=== PATIENT | female | born 1990 | race Caucasian/White ===

== ENCOUNTER 2016-04-26 18:07 | Emergency (ER) | payer SELFPAY ==
--- NOTE | 2016-04-26 19:06 | Emergency Department Record ---
History of Present Illness - General Chief Complaint: Arrythmia/Palpitations Stated Complaint: IRREGULAR HEARTBEAT,DIZZY Time Seen by Provider: 04/26/16 18:32 Mode of Arrival: Ambulatory - History of Present Illness Initial Comments: The patient has been having palpitations off and on for about a month. She also has not felt well for at least a month and has had weakness, dizziness and fatigue. Today a few hours ago she also had some sharp L upper CP near her armpit. She denied any SOB, BROOKS, sweating, radiation of the pain to the back or nausea with the pain. Presently she denies any problems, pain or discomfort. The patient does not have any cardiac risk factors. The patient does have a hx of being tall and has been told she does NOT have Marfan's Syndrome. She also has seen a Director [employer] in the recent past and has been told her heart is WNL. She believes she did have a cardiac echo at that time. MD Complaint: Irregular heart beat, Palpitations Onset/Timin -: Month(s) Context: Occurred during rest Arrythmia History: Other Associated Symptoms: Chest pain - Related Data Home Medications Medication Instructions Recorded Confirmed Last Taken No Home Med [NO HOME MEDS] 04/26/16 04/26/16 Unknown Allergies Allergy/AdvReac Type Severity Reaction Status Date / Time Sulfa (Sulfonamide AdvReac VOMITING Verified 04/26/16 18:16 Antibiotics) Travel Screening - Travel/Exposure Within Last 30 Days Have you traveled within the last 30 days?: No - Travel/Exposure Within Last Year Have you traveled outside the [place] in the last year?: No - Additonal Travel Details Have you been exposed to anyone with a communicable illness?: No - Travel Symptoms Symptom Screening: None Past Medical History - SOCIAL HISTORY Smoking Status: Never smoker Alcohol Use: Occassional Drug Use: None - RESPIRATORY Hx Respiratory Disorders: No - CARDIOVASCULAR Hx Cardio Disorders: No Comment:: arrythmia - NEURO Hx Neuro Disorders: No - GI Hx GI Disorders: No - Hx Genitourinary Disorders: No - ENDOCRINE Hx Endocrine Disorders: No - MUSCULOSKELETAL Hx Musculoskeletal Disorders: No - PSYCH Hx Psych Problems: No - HEMATOLOGY/ONCOLOGY Hx Hematology/Oncology Disorders: No Family Medical History Any Significant Family History?: Yes Hx Heart Disease: Grandparents Physical Exam - General General Appearance: Alert, Oriented x3, Cooperative, No acute distress - Head Head exam: Atraumatic, Normocephalic, Normal inspection - Eye Eye exam: Normal appearance, PERRL - Neck Neck exam: Normal inspection, Full ROM. negative: Tenderness - Respiratory Respiratory exam: Normal lung sounds bilaterally. negative: Respiratory distress - Cardiovascular Cardiovascular Exam: Regular rate, Normal rhythm, Normal heart sounds - GI/Abdominal GI/Abdominal exam: Soft, Normal bowel sounds. negative: Tenderness - Extremities Extremities exam: Normal inspection, Full ROM, Normal capillary refill. negative: Calf tenderness, Pedal edema, Tenderness - Neurological Neurological exam: Alert, Normal gait. negative: Abnormal gait, Motor sensory deficit - Psychiatric Psychiatric exam: negative: Agitated, Anxious - Skin Skin exam: negative: Rash Course Vital Signs 04/26/16 18:19 Temperature 98.3 F Pulse Rate 77 Respiratory 18 Rate Blood Pressure 137/85 Pulse Ox 98 - Reevaluation(s) Reevaluation #1: The patient is doing very well at this time. She denies any pain or discomfort and has been asymptomatic the entire time she has been in the ED. I explained to her that her tests are all WNL. The patient is refusing her CXR but does feel well enough for home. I explained to her that I felt her symptoms are not anything dangerous due to her eval being completely normal along with the fact she has no cardiac risk factors. I also explained to her that I strongly doubted a PE due to the fact she has no pain now, no SOB or BROOKS, and is PERC neg. Due to the fact the patient is refusing her CXR I did explain to her that she will need to sign out of the ED AMA. I explained to her that we cannot be held liable for NOT doing the xray and possibly missing things that could be causing her symptoms. She was encouraged to see her PCP LOYDA and to return to the ER for any problems or new issues. 04/26/16 20:26 Medical Decision Making - Data Complexity MDM Data: Labs Ordered and/or Reviewed, EKG Ordered and/or Reviewed - Lab Data Result diagrams: 04/26/16 18:25 04/26/16 18:25 - EKG Data -: EKG Interpreted by Me EKG: No Acute Changes, Normal EKG Disposition Disposition: Discharge Clinical Impression: Atypical chest pain Disposition: Against Medical Advice Instructions: Palpitations (ED) Additional Instructions: PLease see your PCP later this week. Return to the ER for any pain, trouble breathing or shortness of breath. Forms: Patient Portal Access Time of Disposition: 20:31
[2016-04-26 19:33] LABS: BASO % 0.2 % (0-6); EOS % 1.4 % (0-6); GRAN % 65.6 % (47-80); HEMATOCRIT 40.9 % (35.0-47.0); HEMOGLOBIN 13.7 gm/dl (11.6-16.0); LYMPH % 25.5 % (16-45); MEAN CELL VOLUME 87.2 fl (81-97); MEAN CORPUSCULAR HEMOGLOBIN 29.2 pg (27-33); MEAN CORPUSCULAR HGB CONC 33.5 g/dl (32-36); MEAN PLATELET VOLUME 9.9 fl (7.4-10.4); MONO % 7.3 % (0-9); PLATELET COUNT 304 K/uL (130-400); RED BLOOD COUNT 4.69 M/uL (3.80-5.40); RED CELL DISTRIBUTION WIDTH 12.7 % (11.5-14.5); WHITE BLOOD COUNT W/O DIFF 8.4 K/uL (4.2-12.2)
[2016-04-26 19:47] LABS: ALB/GLOB RATIO 1.8 (1.1-1.8); ALBUMIN 4.4 gm/dL (3.5-5.0); ALKALINE PHOSPHATASE 68 U/L (38-126); ALT/SGPT 24 U/L (9-52); ANION GAP 9.3 (7-16); AST/SGOT 18 U/L (14-36); BLOOD UREA NITROGEN 12 mg/dL (7-17); CARBON DIOXIDE 25.7 mmol/L (22-30); CREATINE PHOSPHOKINASE 52 U/L (30-135); CREATININE 0.7 mg/dL (0.52-1.04); EST GLOMERULAR FILTRATION RATE > 60 ml/min; GLUCOSE,RANDOM 88 mg/dL (70-110); TOTAL PROTEIN 6.8 gm/dL (6.3-8.2)
[2016-04-26 20:04] LABS: CKMB 0.2 ug/L (0-6); TROPONIN I < 0.012 ng/mL (0.00-0.034)
== END 2016-04-26 20:41 | disposition left against medical advice (07) ==
LOC: ER 18:07
DX: R07.89 Other chest pain (principal); R42 Dizziness and giddiness; R53.1 Weakness
CPT/HCPCS: 80053; 82550; 82553; 84443; 84484; 84703; 85025; 93005; 93010; 99284

== ENCOUNTER 2017-01-27 08:25 | Emergency (ER) | payer BC ==
--- NOTE | 2017-01-27 08:36 | Emergency Department Record ---
History of Present Illness - General Stated Complaint: BAD HEADACHE Time Seen by Provider: 01/27/17 08:26 Source: Patient, Family Mode of Arrival: Ambulatory Limitations: No limitations - History of Present Illness Initial Comments: 26 yo female presents with a headache. She awoke with the symptoms. She does have a history of migraines. She had very frequent migraines in middle school through high school that have decreased as an adult. Her last migraine was in March. Today's headache is mostly left sided, throbs with "tension" in her shoulders and neck. She does have some associated nausea and light sensitivity. The headache has gradually increased. No fevers, chills. vomiting. She has had some URI symptoms recently that are mild. 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 She does have aura with her migraines. She has mild vision aura today. Complaint: Headache -: Hour(s) (2) Onset Description: Awoke with symptoms Location: Facial, Left, Neck, Other (shoulders) Severity: Severe Quality: Aching, Throbbing Consistency: Constant Improves With: Rest Worsens With: Light Context: Recent URI Associated Symptoms: Photophobia, Other (Nausea) Treatments Prior to Arrival: Ibuprofen - Related Data Home Medications Medication Instructions Recorded Confirmed Last Taken Ergocalciferol (Vitamin D2) 50,000 unit PO WEEKLY 01/27/17 01/27/17 01/24/17 [Vitamin D2] Allergies Allergy/AdvReac Type Severity Reaction Status Date / Time Sulfa (Sulfonamide AdvReac VOMITING Verified 01/27/17 08:37 Antibiotics) Review of Systems Constitutional: Denies: Chills, Fever, Malaise, Weakness Eyes: Reports: Photophobia. Denies: Eye discharge, Eye pain, Vision change ENT: Reports: Congestion. Denies: Ear pain, Epistaxis, Throat pain Respiratory: Denies: Cough, Dyspnea, Hemoptysis, Stridor, Wheezes Cardiovascular: Denies: Chest pain, Edema, Syncope Endocrine: Denies: Fatigue, Polydipsia, Polyuria Gastrointestinal: Reports: Nausea. Denies: Abdominal pain, Diarrhea, Vomiting Musculoskeletal: Reports: Myalgia. Denies: Arthralgia, Back pain, Gout, Joint swelling Skin: Denies: Bruising, Change in color, Rash Neurological: Reports: Headache. Denies: Abnormal gait, Confusion, Numbness, Paresthesias, Seizure, Tingling, Tremors, Vertigo, Weakness Psychiatric: Denies: Anxiety Hematological/Lymphatic: Denies: Blood Clots, Easy bleeding, Easy bruising, Swollen glands Past Medical History - SOCIAL HISTORY Smoking Status: Never smoker Drug Use: None - RESPIRATORY Hx Respiratory Disorders: No - CARDIOVASCULAR Hx Cardio Disorders: No Comment:: arrythmia - NEURO Hx Neuro Disorders: No - GI Hx GI Disorders: No - Hx Genitourinary Disorders: No - ENDOCRINE Hx Endocrine Disorders: No - MUSCULOSKELETAL Hx Musculoskeletal Disorders: No - PSYCH Hx Psych Problems: No - HEMATOLOGY/ONCOLOGY Hx Hematology/Oncology Disorders: No Family Medical History Hx Heart Disease: Grandparents Physical Exam - General General Appearance: Alert, Oriented x3, Cooperative, No acute distress Limitations: No limitations - Head Head exam: Atraumatic, Normocephalic, Normal inspection Head exam detail: negative: Abrasion, Contusion, Fairchild's sign, General tenderness - Eye Eye exam: Normal appearance, PERRL, EOMI. negative: Conjunctival injection, Nystagmus, Periorbital swelling, Scleral icterus - ENT ENT exam: Normal exam, Mucous membranes moist, Normal orophraynx Ear exam: Normal external inspection Nasal Exam: Normal inspection Mouth exam: Normal external inspection Teeth exam: Normal inspection Throat exam: Normal inspection. negative: Tonsillar erythema, Tonsillar exudate - Neck Neck exam: Normal inspection, Full ROM, Other (Very supple full ROM). negative : Lymphadenopathy, Meningismus, Tenderness - Respiratory Respiratory exam: Normal lung sounds bilaterally. negative: Respiratory distress - Cardiovascular Cardiovascular Exam: Regular rate, Normal rhythm, Normal heart sounds Peripheral Pulses: 2+: Radial (R), Radial (L) - GI/Abdominal GI/Abdominal exam: Soft. negative: Tenderness - Rectal Rectal exam: Deferred - exam: Deferred - Extremities Extremities exam: Normal inspection - Back Back exam: Reports: Normal inspection, Full ROM. Denies: CVA tenderness (R), CVA tenderness (L) - Neurological Neurological exam: Alert, CN II-XII intact, Normal gait, Oriented X3, Reflexes normal. negative: Abnormal gait, Altered, Motor sensory deficit - Psychiatric Psychiatric exam: Normal affect, Normal mood. negative: Agitated, Anxious - Skin Skin exam: Dry, Intact, Normal color, Warm Course - Reevaluation(s) Reevaluation #1: The patient is well appearing with normal neurologic examination as tested She has a history of migraines in the past No acute indication for HCT, no trauma or fevers. The CBC, UA, and UCG are negative 01/27/17 09:12 No acute changes on the CMP The patient's symptoms are improving at this time with well controlled nausea She is asking for crackers. 01/27/17 09:22 The patient continues to feel much better. Awaiting remaing IVF then will reassess. 01/27/17 09:50 01/27/17 10:38 The patient is doing very well. She has been up to the restroom doing well on her feet. She has some tight muscles in the back otherwise she is ready for DC. We discussed reasons to return and close follow up. Medical Decision Making - Lab Data Result diagrams: 01/27/17 08:53 01/27/17 08:53 Disposition Disposition: Discharge Clinical Impression: Headache Qualifiers: Headache type: unspecified Headache chronicity pattern: acute headache Intractability: not intractable Qualified Code(s): R51 - Headache Disposition: Home, Self-Care Condition: (1) Good Instructions: Migraine Headache (ED), Acute Headache (ED) Additional Instructions: Rest and stay well hydrated Return if worse, fever, vomiting or any new concerns Call your doctor for close follow up of this ER visit Forms: Patient Portal Access Time of Disposition: 10:39 Quality - Quality Measures Quality Measures: N/A - Blood Pressure Screening Does Patient Have Any of the Following: No Blood Pressure Classification: Pre-Hypertensive BP Reading Systolic Measurement: 131 Diastolic Measurement: 83 Screening for High Blood Pressure: < Pre-Hypertensive BP, F/U Documented > [ G8950] Pre-Hypertensive Follow-up Interventions: Referral to alternative/primary care provider.
[2017-01-27] MEDS ORDERED: DIPHENHYDRAMINE HCL IV 50 MG/ML VIAL IVP ONE (08:37)
[2017-01-27] MEDS ORDERED: 0.9 % SODIUM CHLORIDE 1,000 ML BAG IV ONE (08:37)
[2017-01-27] MEDS ORDERED: KETOROLAC 30 MG/ML VIAL IVP ONE (08:37)
[2017-01-27] MEDS ORDERED: METOCLOPRAMIDE HCL 10 MG/2 ML VIAL IVP ONE (08:37)
[2017-01-27 09:02] LABS: BASO % 0.1 % (0-6); GRAN % 71.6 % (47-80); HEMATOCRIT 41.1 % (35.0-47.0); HEMOGLOBIN 13.8 gm/dl (11.6-16.0); LYMPH % 17.4 % (16-45); MEAN CELL VOLUME 85.4 fl (81-97); MEAN CORPUSCULAR HEMOGLOBIN 28.7 pg (27-33); MEAN CORPUSCULAR HGB CONC 33.6 g/dl (32-36); MEAN PLATELET VOLUME 9.8 fl (7.4-10.4); MONO % 8.9 % (0-9); PLATELET COUNT 304 K/uL (130-400); RED BLOOD COUNT 4.81 M/uL (3.80-5.40); RED CELL DISTRIBUTION WIDTH 12.6 % (11.5-14.5); URINE APPEARANCE CLEAR; URINE BILIRUBIN NEGATIVE (NEGATIVE); URINE BLOOD NEGATIVE (NEGATIVE); URINE COLOR YELLOW; URINE GLUCOSE (UA) NEGATIVE (NEGATIVE); URINE KETONE NEGATIVE (NEGATIVE); URINE LEUKOCYTE ESTERASE NEGATIVE (NEGATIVE); URINE NITRITE NEGATIVE (NEGATIVE); URINE PROTEIN NEGATIVE (NEGATIVE); URINE UROBILINOGEN 0.2 E.U./dL (0.20 - 1.00); WHITE BLOOD COUNT W/O DIFF 6.8 K/uL (4.2-12.2)
[2017-01-27 09:10] LABS: HCG,QUALITATIVE URINE NEGATIVE (NEGATIVE)
[2017-01-27 09:21] LABS: ALB/GLOB RATIO 1.7 (1.1-1.8); ALBUMIN 4.2 g/dL (4.0-5.0); ALKALINE PHOSPHATASE 66 U/L (35-104); ALT/SGPT 9 U/L (<33); AST/SGOT 13 U/L (10.0-35.0); BLOOD UREA NITROGEN 10 mg/dL (6-20); CREATININE 0.6 mg/dL (0.5-0.9); EST GLOMERULAR FILTRATION RATE > 60 mL/min; GLUCOSE,RANDOM 91 mg/dL (74-109); TOTAL PROTEIN 6.7 g/dL (6.6-8.7)
== END 2017-01-27 10:50 | disposition home or self-care (01) ==
LOC: ER 08:25
DX: R51 Headache (principal); R11.0 Nausea; H53.149 Visual discomfort, unspecified
CPT/HCPCS: 99284 ×2; 96374; 96375; 96361; 85025; 80053; 81003; 81025; J1885; J1200; J2765; J7030

== ENCOUNTER 2017-11-13 10:09 | Emergency (ER) | payer BC ==
--- NOTE | 2017-11-13 10:31 | Emergency Department Record ---
History of Present Illness - General Chief Complaint: Palpitations Stated Complaint: PALPATATIONS Time Seen by Provider: 11/13/17 10:27 Source: Patient, RN notes reviewed Mode of Arrival: Ambulatory - History of Present Illness Initial Comments: patient having palpitations more than usually. Patient under stress with jobs and boyfriend and she had caffeine today. Patient drinks 2 iced coffee per day Large. patient was reluctant to start any meds she was sent over by Dr. Wasserman' s office to hopefully get an echo and a cardiology appointment Complaint: Palpitations Onset/Timin -: Week(s) Arrythmia History: Other Associated Symptoms: Cough, Near-syncope - Related Data Allergies Allergy/AdvReac Type Severity Reaction Status Date / Time Sulfa (Sulfonamide AdvReac VOMITING Verified 11/13/17 10:21 Antibiotics) Travel Screening - Travel/Exposure Within Last 30 Days Have you traveled within the last 30 days?: No Review of Systems Reviewed: No additional complaints except as noted below Constitutional: Reports: As per HPI. Denies: Chills, Fever, Malaise, Night sweats, Weakness, Weight change Eyes: Reports: As per HPI. Denies: Eye discharge, Eye pain, Photophobia, Vision change ENT: Reports: As per HPI. Denies: Congestion, Dental pain, Ear pain, Epistaxis , Hearing loss, Throat pain Respiratory: Reports: As per HPI. Denies: Cough, Dyspnea, Hemoptysis, Stridor, Wheezes Cardiovascular: Reports: As per HPI, Palpitations. Denies: Arrhythmia, Chest pain, Dyspnea on exertion, Edema, Murmurs, Orthopnea, Paroxysmal nocturnal dyspnea, Rheumatic Fever, Syncope Endocrine: Reports: As per HPI. Denies: Fatigue, Heat or cold intolerance, Polydipsia, Polyuria Gastrointestinal: Reports: As per HPI. Denies: Abdominal pain, Constipation, Diarrhea, Hematemesis, Hematochezia, Melena, Nausea, Vomiting Genitourinary: Reports: As per HPI. Denies: Abnormal menses, Discharge, Dyspareunia, Dysuria, Frequency, Hematuria, Incontinence, Retention, Urgency Musculoskeletal: Reports: As per HPI. Denies: Arthralgia, Back pain, Gout, Joint swelling, Myalgia, Neck pain Skin: Reports: As per HPI. Denies: Bruising, Change in color, Change in hair/ nails, Lesions, Pruritus, Rash Neurological: Reports: As per HPI. Denies: Abnormal gait, Confusion, Headache, Numbness, Paresthesias, Seizure, Tingling, Tremors, Vertigo, Weakness Psychiatric: Reports: As per HPI. Denies: Anxiety, Auditory hallucinations, Depression, Homicidal thoughts, Suicidal thoughts, Visual hallucinations Hematological/Lymphatic: Reports: As per HPI. Denies: Anemia, Blood Clots, Easy bleeding, Easy bruising, Swollen glands Past Medical History - SOCIAL HISTORY Smoking Status: Never smoker Drug Use: None - RESPIRATORY Hx Respiratory Disorders: No - CARDIOVASCULAR Hx Cardio Disorders: No Comment:: arrythmia - NEURO Hx Neuro Disorders: No - GI Hx GI Disorders: No - Hx Genitourinary Disorders: No - ENDOCRINE Hx Endocrine Disorders: No - MUSCULOSKELETAL Hx Musculoskeletal Disorders: No - PSYCH Hx Psych Problems: No - HEMATOLOGY/ONCOLOGY Hx Hematology/Oncology Disorders: No Family Medical History Hx Heart Disease: Grandparents Physical Exam - General General Appearance: Alert, Oriented x3, Cooperative, No acute distress - Head Head exam: Normal inspection - Eye Eye exam: Normal appearance, PERRL Pupils: Normal accommodation - ENT ENT exam: Normal exam, Mucous membranes moist, Normal external ear exam, Normal orophraynx, TM's normal bilaterally Ear exam: Normal external inspection. negative: External canal tenderness Nasal Exam: Normal inspection. negative: Discharge, Sinus tenderness Mouth exam: Normal external inspection, Tongue normal Teeth exam: Normal inspection. negative: Dental caries Throat exam: Normal inspection. negative: Tonsillar erythema, Tonsillar exudate - Neck Neck exam: Normal inspection, Full ROM. negative: Tenderness - Respiratory Respiratory exam: Normal lung sounds bilaterally. negative: Respiratory distress - Cardiovascular Cardiovascular Exam: Regular rate, Normal rhythm, Normal heart sounds - GI/Abdominal GI/Abdominal exam: Soft, Normal bowel sounds. negative: Tenderness - Rectal Rectal exam: Deferred - exam: Deferred - Extremities Extremities exam: Normal inspection, Full ROM, Normal capillary refill. negative: Tenderness - Back Back exam: Reports: Normal inspection, Full ROM. Denies: Muscle spasm, Rash noted, Tenderness - Neurological Neurological exam: Alert, Normal gait, Oriented X3, Reflexes normal - Psychiatric Psychiatric exam: Normal affect, Normal mood - Skin Skin exam: Dry, Intact, Normal color, Warm Course Vital Signs 11/13/17 10:22 Temperature 98.4 F Pulse Rate 71 Respiratory 16 Rate Blood Pressure 127/85 Pulse Ox 98 - Reevaluation(s) Reevaluation #1: patient feeling better and refused ativan IV. 11/13/17 11:33 Medical Decision Making - Lab Data Result diagrams: 11/13/17 11:10 11/13/17 11:10 Disposition Clinical Impression: Palpitations Disposition: Home, Self-Care Condition: (1) Good Instructions: Heart Palpitations (ED) Additional Instructions: follow up with Dr. 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 to see LACY Dumas stop caffeine Forms: Patient Portal Access Time of Disposition: 13:18 Quality - Quality Measures Quality Measures: N/A - Blood Pressure Screening Does Patient Have Any of the Following: No Blood Pressure Classification: Pre-Hypertensive BP Reading Systolic Measurement: 127 Diastolic Measurement: 85 Screening for High Blood Pressure: < Pre-Hypertensive BP, F/U Documented > [ G8950] Pre-Hypertensive Follow-up Interventions: Referral to alternative/primary care provider.
[2017-11-13 11:15] LABS: BASO % 0.2 % (0-6); EOS % 1.8 % (0-6); GRAN % 75.9 % (47-80); HEMATOCRIT 45.3 % (35.0-47.0); HEMOGLOBIN 14.6 gm/dl (11.6-16.0); LYMPH % 14.7 % (16-45); MEAN CELL VOLUME 86.8 fl (81-97); MEAN CORPUSCULAR HGB CONC 32.2 g/dl (32-36); MEAN PLATELET VOLUME 9.6 fl (7.4-10.4); MONO % 7.4 % (0-9); PLATELET COUNT 351 K/uL (130-400); RED BLOOD COUNT 5.22 M/uL (3.80-5.40); RED CELL DISTRIBUTION WIDTH 13.1 % (11.5-14.5); WHITE BLOOD COUNT W/O DIFF 9.6 K/uL (4.2-12.2)
[2017-11-13] MEDS ORDERED: LORAZEPAM 2 MG/ML VIAL IV ONE (11:17)
[2017-11-13 11:22] LABS: HCG,QUALITATIVE URINE NEGATIVE (NEGATIVE)
[2017-11-13 11:23] LABS: AMPHETAMINE SCREEN URINE NOT DETECTED; BARBITURATE SCREEN URINE NOT DETECTED; BENZODIAZEPINE SCREEN URINE NOT DETECTED; COCAINE SCREEN URINE NOT DETECTED; METHADONE SCREEN URINE NOT DETECTED; METHAMPHETAMINE SCREEN NOT DETECTED; OPIATE SCREEN URINE NOT DETECTED; OXYCODONE SCREEN URINE NOT DETECTED; PHENCYCLIDINE SCREEN URINE NOT DETECTED; PROPOXYPHENE SCREEN URINE NOT DETECTED; THC SCREEN URINE NOT DETECTED; TRICYCLIC ANTIDEPRESSANT SCRN NOT DETECTED
[2017-11-13 11:25] LABS: BLOOD UREA NITROGEN 9 mg/dL (6-20); CREATININE 0.7 mg/dL (0.5-0.9); EST GLOMERULAR FILTRATION RATE > 60 mL/min
[2017-11-13 11:28] LABS: GLUCOSE,RANDOM 84 mg/dL (74-109)
[2017-11-13 11:31] LABS: URINE APPEARANCE CLEAR; URINE BILIRUBIN NEGATIVE (NEGATIVE); URINE BLOOD NEGATIVE (NEGATIVE); URINE COLOR YELLOW; URINE GLUCOSE (UA) NEGATIVE (NEGATIVE); URINE KETONE NEGATIVE (NEGATIVE); URINE LEUKOCYTE ESTERASE NEGATIVE (NEGATIVE); URINE NITRITE NEGATIVE (NEGATIVE); URINE PROTEIN NEGATIVE (NEGATIVE); URINE UROBILINOGEN 0.2 E.U./dL (0.20 - 1.00)
== END 2017-11-13 13:39 | disposition home or self-care (01) ==
LOC: ER 10:09
DX: R00.2 Palpitations (principal)
CPT/HCPCS: 80048; 80305; 81003; 81025; 84443; 84484; 85025; 93005; 93010; 93306; 96374; 99284